=== PATIENT | female | born 1955 | race Caucasian/White ===

== ENCOUNTER 2023-06-22 06:58 | Day surgery (SDC) | payer MEDICARE, BC ==
[~2023-06-22 06:58] MED LIST: Sodium Chloride 0.9% 10 ML Syringe FLUSH PRN
[2023-06-22] MEDS: Sodium Chloride 0.9% 10 ML Syringe FLUSH SCH (07:50)
[2023-06-22 08:10] VITALS: BP 168/81; PULSE 68
== END 2023-06-22 08:30 | disposition home or self-care (01) ==
LOC: JP.SDS 06:58
PROVIDERS: ATTEND Ophthalmology
DX: H26.9 Unspecified cataract (principal); I10 Essential (primary) hypertension; G47.33 Obstructive sleep apnea (adult) (pediatric)
CPT/HCPCS: 66984; J3490